=== PATIENT | male | born 1980 | race Caucasian/White ===

== ENCOUNTER 2018-08-19 09:05 | Emergency (ER) | payer OTHER, SELFPAY ==
[~2018-08-19 09:05] MED LIST: Dextrose 5 %-0.45 % NaCl 1000 ml Bag ONE; Sodium Chloride 0.9% 1,000 ML BAG ONE
[2018-08-19 09:39] LABS: #Lymphocytes 1.5 thou/uL (1.20-3.40); #Monocytes 0.6 thou/uL (0.11-0.59); %Basophils 0.4 % (0.0-1.0); %Eosinophils 0.1 % (0.0-10.0); %Lymphocytes 18.5 % (21.0-51.0); %Monocytes 6.7 % (0.0-10.0); %Neutrophils 74.2 % (42.0-75.0); Hemoglobin 12.7 g/dL (14.0-18.0); Mean Corpuscular HGB CONC 33.7 g/dL (32.0-36.0); Mean Corpuscular Hemoglobin 29.6 pg (27.0-31.0); Mean Corpuscular Volume 87.9 fL (78.0-98.0); Mean Platelet Volume 8.2 fL (7.4-10.4); Platelet Count 240 thou/uL (130-400); RBC Distribution Width 11.8 % (11.5-14.5); Red Blood Cell (RBC) Count 4.28 mill/uL (4.70-6.10); White Blood Cell (WBC) Count 8.1 thou/uL (4.8-10.8)
[2018-08-19 09:57] LABS: ALT (SGPT) 17 U/L (8-55); AST (SGOT) 28 U/L (5-34); Albumin 3.9 g/dL (3.5-5.0); Alkaline Phosphatase 79 U/L (40-150); Anion Gap 23 mmol/L (10-20); BUN (Urea Nitrogen) 56 mg/dL (8.9-20.6); Bilirubin, Total 0.7 mg/dL (0.2-1.2); Calc. Creatinine Clearance 0 mL/min (70-130); Calcium 9.1 mg/dL (7.8-10.44); Carbon Dioxide 28 mmol/L (22-29); Chloride 85 mmol/L (98-107); Estimated GFR-MDRD 26; Globulin 3.5 g/dL (2.4-3.5); Glucose 132 mg/dL (70-105); Magnesium 2.2 mg/dL (1.6-2.6); Potassium 3.5 mmol/L (3.5-5.1); Protein, Total 7.4 g/dL (6.0-8.3); Sodium 132 mmol/L (136-145)
[2018-08-19] MEDS ORDERED: Potassium Chloride 20 MEQ/100 ML PREMIX BAG ONE (10:27)
[2018-08-19 11:29] LABS: Bilirubin Negative (Negative); Blood, Urine Trace (Negative); Clarity Clear (Clear); Glucose, Urine (Dipstick) Negative (Negative); Leukocyte Negative (Negative); Nitrite Negative (Negative); Protein, Urine (Dipstick) 30 mg/dL (Neg-Trace); Specific Gravity, Urine 1.007 (1.002-1.036); Urobilinogen 0.2 mg/dL (0.2-1.0)
[2018-08-19 11:31] LABS: Bacteria/HPF Rare-Few HPF (None Seen); RBC/HPF 0-3 HPF (0-3); Sperm/HPF 1+ HPF (None Seen); WBC/HPF None Seen HPF (0-3)
[2018-08-19 11:43] LABS: pH (Venous) 7.687 (7.320-7.430)
[2018-08-19 11:44] LABS: Base Excess-Venous 8.1 mmol/L (-2.0 to 3.0); Bicarbonate (HCO3v) 27.2 mmol/L (22.0-28.0); CO2 Tension (PvCO2) 22.7 mmHg (40.0-50.0); O2 Tension (PvO2) 199.1 mmHg (35.0-45.0); vO2 Saturation-calc 99.9 % (60.0-85.0)
[2018-08-19 11:45] LABS: Calcium, Ionized 0.91 mmol/L (See Comments:); Chloride 94 mmol/L (98-107); Potassium 3.1 mmol/L (3.5-5.1); Sodium 129 mmol/L (138-145); T. Carbon Dioxide 27.9 mmol/L (22.0-28.0)
[2018-08-19] MEDS ORDERED: Lorazepam 2 MG/ML VIAL ONE (13:05)
[2018-08-21 14:24] LABS: CO2 Tension (PaCO2) POC ABG 24.7 mmHg (35.0-48.0)
[2018-08-21 14:27] LABS: Base Excess (BEa) POC ABG 7.5 mmol/L (0 (+/- 2.5)); Hemoglobin POC ABG 12.2 g/dL (12.0-17.0); O2 Tension (PaO2) POC ABG 79.3 mmHg (83-108); Potassium POC ABG 3.2 mmol/L (3.5-4.5); pH (Arterial) 7.654 (7.35-7.45)
== END 2018-08-19 14:20 | disposition short-term general hospital (02) ==
LOC: MADERS 09:05
DX: E87.4 Mixed disorder of acid-base balance (principal); N18.9 Chronic kidney disease, unspecified; E87.1 Hypo-osmolality and hyponatremia; I12.9 Hypertensive chronic kidney disease with stage 1 through stage 4 chronic kidney disease, or unspecified chronic kidney disease; F17.210 Nicotine dependence, cigarettes, uncomplicated; Z79.899 Other long term (current) drug therapy; E10.9 Type 1 diabetes mellitus without complications; Z79.82 Long term (current) use of aspirin
CPT/HCPCS: 36415; 36416; 80053; 81003; 81015; 82330; 82435; 82803; 83605; 83735; 84132; 84295; 85014; 85025; 93005; 96361; 96365; 96366; 96375; 99292; J2060; J3480; J7042; J7050

== ENCOUNTER 2019-07-17 10:51 | Emergency (ER) | payer MEDICAID, OTHER ==
[2019-07-17 11:21] LABS: #Lymphocytes 1.1 thou/uL (1.20-3.40); #Monocytes 0.7 thou/uL (0.11-0.59); #Neutrophils 12.6 thou/uL (1.40-6.50); %Basophils 0.3 % (0.0-1.0); %Lymphocytes 7.5 % (21.0-51.0); %Monocytes 4.5 % (0.0-10.0); %Neutrophils 87.7 % (42.0-75.0); Hemoglobin 11.7 g/dL (14.0-18.0); Mean Corpuscular HGB CONC 30.9 g/dL (32.0-36.0); Mean Corpuscular Volume 93.9 fL (78.0-98.0); Mean Platelet Volume 9.4 fL (7.4-10.4); Platelet Count 230 thou/uL (130-400); RBC Distribution Width 12.2 % (11.5-14.5); Red Blood Cell (RBC) Count 4.05 mill/uL (4.70-6.10); White Blood Cell (WBC) Count 14.3 thou/uL (4.8-10.8)
[2019-07-17] MEDS ORDERED: Sodium Chloride 0.9% 1,000 ML ONE ×2 (11:22→12:30)
[2019-07-17] MEDS ORDERED: Insulin Regular 300 UNITS/3 ML VIAL ONE (11:22)
[2019-07-17] MEDS ORDERED: SUMAtriptan Succinate 6 MG/0.5 ML VIAL ONE (11:22)
[2019-07-17] MEDS ORDERED: Sodium Chloride 0.9% 100 ML ONE ×2 (11:22→12:30)
[2019-07-17] MEDS ORDERED: Promethazine HCl 25 MG/ML VIAL ONE (11:22)
--- NOTE | 2019-07-17 11:28 | RAD ---
Portable chest: HISTORY: Tachycardia COMPARISON: none FINDINGS: Lung thomas are clear. Heart and mediastinum appear unremarkable. Vascularity is normal. Visualized osseous structures unremarkable. IMPRESSION: No acute finding
[2019-07-17 11:39] LABS: ALT (SGPT) 16 U/L (8-55); AST (SGOT) 15 U/L (5-34); Albumin 4.1 g/dL (3.5-5.0); Alkaline Phosphatase 71 U/L (40-110); Anion Gap 31 mmol/L (10-20); BUN (Urea Nitrogen) 60 mg/dL (8.9-20.6); Bilirubin, Total 0.5 mg/dL (0.2-1.2); Calc. Creatinine Clearance 0 mL/min (70-130); Calcium 9.8 mg/dL (7.8-10.44); Carbon Dioxide 16 mmol/L (22-29); Chloride 96 mmol/L (98-107); Estimated GFR-MDRD 14; Globulin 3.2 g/dL (2.4-3.5); Magnesium 1.9 mg/dL (1.6-2.6); Potassium 4.7 mmol/L (3.5-5.1); Protein, Total 7.3 g/dL (6.0-8.3); Sodium 138 mmol/L (136-145)
[2019-07-17] MEDS ORDERED: Mag-Al Plus 1200 MG/1200 MG/120 MG/30 ML UDCUP ONE (12:35)
[2019-07-17] MEDS ORDERED: Lidocaine Viscous Sol 2% 15 ml UD Cup ONE (12:35)
[2019-07-17 12:45] LABS: Glucose 646 mg/dL (70-105)
== END 2019-07-17 13:20 | disposition short-term general hospital (02) ==
LOC: MADERS 10:51
DX: E10.10 Type 1 diabetes mellitus with ketoacidosis without coma (principal); N28.9 Disorder of kidney and ureter, unspecified; F17.210 Nicotine dependence, cigarettes, uncomplicated; Z79.899 Other long term (current) drug therapy; Z79.82 Long term (current) use of aspirin
CPT/HCPCS: 36416; 71045; 80053; 83605; 83735; 84484; 85025; 93005; 94760; 96365; 96375; 96376; J1815; J2550; J3030; J3490; J7050